=== PATIENT | male | born 1965 | race Caucasian/White ===

== ENCOUNTER → 2020-09-26 | Outpatient (CLI) | payer MEDICARE, OTHER ==
[~2020-09-26] MED LIST: ABILIFY MAINTE400 M1 IM; ARISTADA; AUSTEDO PO; BENADRYL 25MG C25 MG PO; CATAPRES 0.1MG0.1 MG PO; CLONAZEPAM0.5 MG PO; COGENTIN 2MG TAB2 MG PO; COREG 25MG TAB25 MG PO; KLONOPIN1 MG PO; NORVASC 5 MG TAB5 MG PO; OMEPRAZOLE20 MG PO; PANTOPRAZOLE SO40 MG PO; PEPCID20 MG PO; PERPHENAZINE8 MG PO; PRAVACHOL40 MG PO; SEROQUEL200 MG PO; TRILEPTAL600 MG PO
== END ==
LOC: KOH-I 09-12 11:00
DX: Z12.2 Encounter for screening for malignant neoplasm of respiratory organs (principal); F17.210 Nicotine dependence, cigarettes, uncomplicated; R91.1 Solitary pulmonary nodule
CPT/HCPCS: 71271

== ENCOUNTER 2021-01-04 11:40 | Emergency (ER) | payer MEDICARE, OTHER ==
[2021-01-04 12:28] LABS: HEMOGLOBIN 15.9 gm/dl (14.0-17.5); RED BLOOD COUNT 4.68 M/UL (4.20-5.50); WHITE BLOOD COUNT 4.8 K/UL (4.5-11.0)
[2021-01-04 12:45] LABS: BUN/CREATININE RATIO 14 (0-10)
== END 2021-01-04 18:45 | disposition short-term general hospital (02) ==
LOC: ER1 11:40
DX: E87.1 Hypo-osmolality and hyponatremia (principal)
CPT/HCPCS: 70450; 80053; 85025; 93005; 99285

== ENCOUNTER → 2021-02-21 | Outpatient (CLI) | payer MEDICARE, OTHER | LOC: EXRD 07:54 | DX: I10 Essential (primary) hypertension (principal) | CPT/HCPCS: 93975 ==

== ENCOUNTER → 2021-08-07 | Outpatient (CLI) | payer MEDICARE, OTHER | LOC: EXRD 12:57 | DX: R05.9 Cough, unspecified (principal); R79.89 Other specified abnormal findings of blood chemistry; R91.8 Other nonspecific abnormal finding of lung field | CPT/HCPCS: 71046 ==

== ENCOUNTER → 2021-08-24 | Outpatient (CLI) | payer MEDICARE, OTHER | LOC: ECHO 11:15 | DX: I10 Essential (primary) hypertension (principal); R06.02 Shortness of breath | CPT/HCPCS: ECHO; 93306 ==

== ENCOUNTER 2021-09-06 10:42 | Inpatient (IN) | payer MEDICARE, OTHER ==
[~2021-09-06] VITALS: Ht 175.3 cm; Wt 96.2 kg
[~2021-09-06 10:42] MED LIST changes: -ARISTADA; +ARISTADA SQ; -CLONAZEPAM0.5 MG PO; +CLONAZEPAM1 MG PO; +PERPHENAZINE16 MG PO; -SEROQUEL200 MG PO; +SEROQUEL50 MG PO
[2021-09-06 11:38] LABS: HEMOGLOBIN 14.5 gm/dl (14.0-17.5); RED BLOOD COUNT 4.3 M/UL (4.20-5.50); WHITE BLOOD COUNT 4.8 K/UL (4.5-11.0)
[2021-09-06 12:02] LABS: BUN/CREATININE RATIO 17 (0-10)
[2021-09-06] MEDS ORDERED: AMLODIPINE BESY10 MG PO (16:16)
[2021-09-06] MEDS ORDERED: ASPIRIN EC81 MG PO (16:16)
[2021-09-06] MEDS ORDERED: ACETAMINOPHEN500 MG PO (16:16)
[2021-09-06] MEDS ORDERED: LORATADINE10 MG PO (16:17)
[2021-09-06] MEDS ORDERED: PREGABALIN75 MG PO (16:17)
[2021-09-06] MEDS ORDERED: FOLIC ACID1 MG PO (16:17)
[2021-09-06] MEDS ORDERED: VITAMIN D31250 MCG PO (16:18)
[2021-09-06] MEDS ORDERED: B-122500 MCG SL (16:18)
[2021-09-06] MEDS ORDERED: CYCLOBENZAPRINE10 MG PO (16:19)
[2021-09-06] MEDS ORDERED: HYDROCHLOROTH12.5 MG PO (16:20)
[2021-09-06] MEDS ORDERED: FUROSEMIDE20 MG PO (16:20)
[2021-09-06] MEDS ORDERED: LEVOTHYROXINE25 MCG PO (16:20)
[2021-09-06] MEDS ORDERED: NAPROXEN375 MG PO (16:21)
[2021-09-06] MEDS ORDERED: PROTONIX 40 MG40 M1 PO (16:21)
[2021-09-06] MEDS ORDERED: CRESTOR 10 MG T10 MG PO (16:21)
[2021-09-06] MEDS ORDERED: ALBUTEROL2.5 MG/3 M INH (16:22)
[2021-09-06] MEDS ORDERED: LEVALBUTER0.63 MG/3 INH (16:25)
[2021-09-07 04:01] LABS: HEMOGLOBIN 12.6 gm/dl (14.0-17.5)
[2021-09-07 04:16] LABS: RED BLOOD COUNT 3.73 M/UL (4.20-5.50); WHITE BLOOD COUNT 12.5 K/UL (4.5-11.0)
[2021-09-07 05:35] LABS: BUN/CREATININE RATIO 13 (0-10)
[2021-09-08 03:38] LABS: HEMOGLOBIN 13.2 gm/dl (14.0-17.5); RED BLOOD COUNT 3.83 M/UL (4.20-5.50); WHITE BLOOD COUNT 11.7 K/UL (4.5-11.0)
[2021-09-08 04:09] LABS: BUN/CREATININE RATIO 10 (0-10)
--- NOTE | 2021-09-08 14:59 | NUR ---
PATIENT BLOOD PRESSURE ELEVATED AT 160/113. CALLED AND NOTIFIED
[2021-09-09 03:19] LABS: HEMOGLOBIN 12.9 gm/dl (14.0-17.5); RED BLOOD COUNT 3.85 M/UL (4.20-5.50); WHITE BLOOD COUNT 7.8 K/UL (4.5-11.0)
[2021-09-09 04:04] LABS: BUN/CREATININE RATIO 11 (0-10)
[2021-09-09] MEDS ORDERED: AUGMENTIN 875-1 EACH PO (12:28)
[2021-09-11 19:11] LABS: ORGANISM ID Not indicated. (.); SPECIMEN SOURCE Urine (.); STREPTOCOCCUS PNEUMONIAE AG Negative (Negative)
== END 2021-09-09 15:36 | disposition home or self-care (01) | DRG 871 ==
LOC: ER1 10:42 → PROG CARE 16:10 → CDU 16:10 → PROG CARE 18:38
PROVIDERS: Physician Assistant; Physician Assistant Medical; ADMIT Internal Medicine Infectious Disease
PROC: 3E033XZ Introduction of Vasopressor into Peripheral Vein, Percutaneous Approach (ICD-10-PCS; principal; 2021-09-06)
DX: A41.9 Sepsis, unspecified organism (principal); R65.21 Severe sepsis with septic shock; J69.0 Pneumonitis due to inhalation of food and vomit; J18.9 Pneumonia, unspecified organism; E87.1 Hypo-osmolality and hyponatremia; F20.0 Paranoid schizophrenia; I10 Essential (primary) hypertension; J45.909 Unspecified asthma, uncomplicated; R25.1 Tremor, unspecified; I87.8 Other specified disorders of veins; I48.0 Paroxysmal atrial fibrillation; F17.200 Nicotine dependence, unspecified, uncomplicated; Z20.822 Contact with and (suspected) exposure to COVID-19; Z79.82 Long term (current) use of aspirin; Z79.899 Other long term (current) drug therapy
CPT/HCPCS: 0240U; 36415; 71045; 71250; 80053; 82550; 82553; 83605; 83735; 83874; 83880; 84484; 85025; 85027; 85379; 87040; 87070; 87081; 87086; 87205; 87278; 87899; 93005; 94640; 94760; 99285; C9113; J0360; J1650; J2270; J2543; J3370; J7030; J7070

== ENCOUNTER → 2021-10-10 | Outpatient (CLI) | payer MEDICARE, OTHER ==
[~2021-10-10] MED LIST changes: +ACETAMINOPHEN500 MG PO; +ALBUTEROL2.5 MG/3 M INH; +AMLODIPINE BESY10 MG PO; +ASPIRIN EC81 MG PO; +AUGMENTIN 875-1 EACH PO; +B-122500 MCG SL; +CRESTOR 10 MG T10 MG PO; +CYCLOBENZAPRINE10 MG PO; +FOLIC ACID1 MG PO; +FUROSEMIDE20 MG PO; +HYDROCHLOROTH12.5 MG PO; +LEVALBUTER0.63 MG/3 INH; +LEVOTHYROXINE25 MCG PO; +LORATADINE10 MG PO; +NAPROXEN375 MG PO; +PREGABALIN75 MG PO; +PROTONIX 40 MG40 M1 PO; +VITAMIN D31250 MCG PO
== END ==
LOC: EXRD 09:47
DX: R05.9 Cough, unspecified (principal); Z87.01 Personal history of pneumonia (recurrent)
CPT/HCPCS: 71046

== ENCOUNTER 2021-11-07 11:16 | Inpatient (IN) | payer MEDICARE, OTHER ==
[~2021-11-07] VITALS: Ht 175.3 cm; Wt 97.5 kg
[~2021-11-07 11:16] MED LIST changes: +PREGABALIN100 MG PO; -PREGABALIN75 MG PO; +SEROQUEL XR50 MG PO; -SEROQUEL50 MG PO
[2021-11-07 12:01] LABS: HEMOGLOBIN 12.3 gm/dl (14.0-17.5); RED BLOOD COUNT 3.73 M/UL (4.20-5.50)
[2021-11-07 12:17] LABS: BUN/CREATININE RATIO 11 (0-10)
[2021-11-07 15:40] LABS: BUN/CREATININE RATIO 11 (0-10)
[2021-11-07] MEDS ORDERED: CLONAZEPAM1 MG PO (16:13)
[2021-11-07] MEDS ORDERED: IPRAT-ALBUT 0.5-3 ML INH (16:17)
[2021-11-07] MEDS ORDERED: CARVEDILOL25 MG PO (16:17)
[2021-11-07] MEDS ORDERED: FAMOTIDINE40 MG PO (16:17)
[2021-11-07] MEDS ORDERED: LOTRIMIN CREAM15 GM TP (16:18)
[2021-11-07 17:48] LABS: BUN/CREATININE RATIO 9 (0-10)
[2021-11-07 20:22] LABS: BUN/CREATININE RATIO 10 (0-10)
[2021-11-07 21:23] LABS: BUN/CREATININE RATIO 8 (0-10)
[2021-11-08 04:57] LABS: HEMOGLOBIN 12.6 gm/dl (14.0-17.5); RED BLOOD COUNT 3.79 M/UL (4.20-5.50)
[2021-11-08 04:59] LABS: WHITE BLOOD COUNT 3.5 K/UL (4.5-11.0)
[2021-11-08 05:12] LABS: BUN/CREATININE RATIO 11 (0-10)
[2021-11-08 13:02] LABS: BUN/CREATININE RATIO 13 (0-10)
[2021-11-08 18:17] LABS: BUN/CREATININE RATIO 12 (0-10)
[2021-11-09 03:24] LABS: HEMOGLOBIN 12.7 gm/dl (14.0-17.5); RED BLOOD COUNT 3.85 M/UL (4.20-5.50)
[2021-11-09 03:31] LABS: WHITE BLOOD COUNT 6.6 K/UL (4.5-11.0)
[2021-11-09 03:37] LABS: BUN/CREATININE RATIO 11 (0-10)
[2021-11-10 02:26] LABS: HEMOGLOBIN 13.2 gm/dl (14.0-17.5); RED BLOOD COUNT 3.99 M/UL (4.20-5.50)
[2021-11-10 02:45] LABS: BUN/CREATININE RATIO 12 (0-10)
[2021-11-12 04:58] LABS: BUN/CREATININE RATIO 9 (0-10)
[2021-11-12] MEDS ORDERED: KEPPRA 500 MG500 MG PO (09:19)
== END 2021-11-12 11:17 | disposition home or self-care (01) | DRG 640 ==
LOC: ER1 11:16 → CDU 14:07 → PROG CARE 11-08 13:22
PROVIDERS: Emergency Medicine; Internal Medicine Nephrology; Physician Assistant Medical; ADMIT Internal Medicine
PROC: XW033E5 Introduction of Remdesivir Anti-infective into Peripheral Vein, Percutaneous Approach, New Technology Group 5 (ICD-10-PCS; 2021-11-07)
PROC: 3E0333Z Introduction of Anti-inflammatory into Peripheral Vein, Percutaneous Approach (ICD-10-PCS; 2021-11-07)
PROC: 8E0ZXY6 Isolation (ICD-10-PCS; principal; 2021-11-08)
PROC: B24BZZZ Ultrasonography of Heart with Aorta (ICD-10-PCS; 2021-11-08)
DX: E87.1 Hypo-osmolality and hyponatremia (principal); G93.41 Metabolic encephalopathy; U07.1 COVID-19; J12.82 Pneumonia due to coronavirus disease 2019; J69.0 Pneumonitis due to inhalation of food and vomit; F20.0 Paranoid schizophrenia; I48.92 Unspecified atrial flutter; I48.91 Unspecified atrial fibrillation; F17.210 Nicotine dependence, cigarettes, uncomplicated; I10 Essential (primary) hypertension; D64.9 Anemia, unspecified; E78.5 Hyperlipidemia, unspecified; E87.6 Hypokalemia; E03.9 Hypothyroidism, unspecified; R47.1 Dysarthria and anarthria; R63.1 Polydipsia; Z79.01 Long term (current) use of anticoagulants; Z79.82 Long term (current) use of aspirin; Z82.49 Family history of ischemic heart disease and other diseases of the circulatory system; Z83.49 Family history of other endocrine, nutritional and metabolic diseases
CPT/HCPCS: 36415; 70450; 70551; 71045; 80048; 80053; 81001; 82436; 82550; 82553; 82962; 83605; 83690; 83735; 83880; 83935; 84132; 84133; 84300; 84439; 84443; 84484; 85025; 85027; 87040; 93005; 94640; 94664; 94760; 96372; 96374; 96375; 97161; 99285; J0248; J1100; J1650; J1953; J2060; J2185; J3370; J7030; J7131; U0002